=== PATIENT | male | born 1965 | race Caucasian/White ===

== ENCOUNTER 2016-12-24 11:40 | Day surgery (SDC) | payer BC ==
[2016-12-22 14:38] VITALS: BP 133/89
[~2016-12-24] VITALS: Ht 172.7 cm; Wt 67.8 kg
[~2016-12-24 11:40] MED LIST: BUPIVACAINE/PF 0.25% ONE; EPINEPHRINE 1 MG/ML, 1ML ONE; IBUP-1222 PO; LIDOCAINE/PF 1%, 30ML ONE; ROPIvacaine/PF 0.5%, 30 ML ONE
[2016-12-24] MEDS ORDERED: LIDOCAINE 1%, 2ML ONE (11:58)
[2016-12-24] MEDS ORDERED: LACTATED RINGERS 1,000 ML IV SCH (12:02)
[2016-12-24 12:06] VITALS: BP 133/89
[2016-12-24] MEDS ORDERED: FENTANYL PF 100 MCG/2ML ONE ×2 (12:30→14:20)
[2016-12-24] MEDS ORDERED: MIDAZOLAM 1 MG/ML, 2ML ONE (12:30)
[2016-12-24] MEDS ORDERED: LIDOCAINE 1%, 2ML SQ PRN (12:30)
[2016-12-24] MEDS ORDERED: NEOSTIGMINE 1 MG/ML, 10ML ONE (13:24)
[2016-12-24] MEDS ORDERED: ROCURONIUM 10 MG/ML ONE (13:24)
[2016-12-24] MEDS ORDERED: GLYCOPYRROLATE 0.2MG/1ML, 5ML ONE (13:24)
[2016-12-24] MEDS ORDERED: CEFAZOLIN 1,000 MG ONE (13:24)
[2016-12-24] MEDS ORDERED: ONDANSETRON 2MG/ML, 2ML ONE (13:24)
[2016-12-24] MEDS ORDERED: DEXAMETHASONE 4 MG/ML, 1ML ONE (13:24)
[2016-12-24] MEDS ORDERED: SUCCINYLCHOLINE 20 MG/ML, 10ML ONE (13:24)
[2016-12-24] MEDS ORDERED: PROPOFOL 10 MG/ML, 20ML ONE (13:24)
[2016-12-24] MEDS ORDERED: MIDAZOLAM 1 MG/ML, 2ML IV PRN (14:00)
[2016-12-24] MEDS ORDERED: METOPROLOL 1 MG/ML, 5ML IV PRN (14:00)
[2016-12-24] MEDS ORDERED: ACETAMINOPHEN 325 MG TABLET PO PRN (14:00)
[2016-12-24] MEDS ORDERED: ALBUTEROL SULFATE 2.5 MG/3 ML NPPB PRN (14:00)
[2016-12-24] MEDS ORDERED: hydrALAzine 20 MG/ML, 1ML IV PRN (14:00)
[2016-12-24] MEDS ORDERED: MEPERIDINE/PF 25MG/0.5ML IVPush PRN (14:00)
[2016-12-24] MEDS ORDERED: OXYcodone 5 MG/5 ML ORAL.SOL UDC PO PRN (14:00)
[2016-12-24] MEDS ORDERED: PROMETHAZINE 25 MG/ML, 1ML IV PRN (14:00)
[2016-12-24] MEDS ORDERED: HYDROmorphone 1 MG/ML, 1ML IV PRN (14:00)
[2016-12-24] MEDS ORDERED: ACETAMINOPHEN 650 MG/20.3 ML UDC ONE (14:20)
[2016-12-24] MEDS ORDERED: OXYcodone 5 MG/5 ML ORAL.SOL UDC ONE (14:21)
[2016-12-24] MEDS: FENTANYL PF 100 MCG/2ML IV PRN ×2 (14:22→14:30)
== END 2016-12-24 15:35 ==
LOC: OUT 11:40
PROVIDERS: ATTEND Orthopaedic Surgery
DX: S83.242A Other tear of medial meniscus, current injury, left knee, initial encounter (principal); X58.XXXA Exposure to other specified factors, initial encounter; Y93.89 Activity, other specified; Y92.89 Other specified places as the place of occurrence of the external cause; Y99.8 Other external cause status; Z98.890 Other specified postprocedural states; Z90.49 Acquired absence of other specified parts of digestive tract
CPT/HCPCS: 29881; J0171; J0690; J1100; J2250; J2405; J2704; J2795; J3010; J3490; J7120; J2710; J0330